=== PATIENT | male | born 1955 | race Caucasian/White ===

== ENCOUNTER 2017-10-22 12:03 | Emergency (ER) | payer OTHER ==
[~2017-10-22] VITALS: Ht 188 cm; Wt 86.4 kg
[2017-10-22 12:08] VITALS: BP 153/89
[2017-10-22 13:23] LABS: TROPONIN I < 0.015 ng/mL (0.000-0.045)
== END 2017-10-22 14:01 | disposition left against medical advice (07) ==
LOC: ED 13:53
DX: F15.10 Other stimulant abuse, uncomplicated (principal)
CPT/HCPCS: 36415; 71046; 84484; 93005; 99285